=== PATIENT | male | born 1975 | race Caucasian/White ===

== ENCOUNTER 2016-09-23 12:40 | Emergency (ER) | payer MEDICAID, MEDICARE, OTHER ==
[2016-09-23 12:41] VITALS: BMI 22.8
--- NOTE | 2016-09-23 13:25 | ED PDOC ---
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 This 41 yo male with pmh depression, substance abuse, is brought to this ED by BLS for evaluation of suicidal ideation x 1 week. Patient stated he has been hearing voices to "kill" himself. Patient admits using heroin yesterday. Patient has no plans. Denies other complains. (Kathie Dinh) Past Medical History - Provider Review Nursing Documentation Reviewed: Yes - Infectious Disease Hx of Infectious Diseases: None - Tetanus Immunization Tetanus Immunization: Unknown - Past Medical History Past Medical History: No Previous - Cardiac Hx Cardiac Disorders: No Hx Hypertension: No - Pulmonary Hx Respiratory Disorders: No Hx Tuberculosis: No - Neurological Hx Neurological Disorder: No HX Cerebrovascular Accident: No Hx Seizures: No - HEENT Hx HEENT Disorder: No - Renal Hx Renal Disorder: No - Endocrine/Metabolic Hx Endocrine Disorders: No - Hematological/Oncological Hx Blood Disorders: Yes Hx Cancer: No Hx Hepatitis C: Yes (Hep C+) - Integumentary Hx Dermatological Disorder: No - Musculoskeletal/Rheumatological Hx Musculoskeletal Disorders: No Hx Falls: No - Gastrointestinal Hx Gastrointestinal Disorders: No - Genitourinary/Gynecological Hx Genitourinary Disorders: No Hx Sexually Transmitted Diseases: No - Psychiatric Hx Substance Use: Yes (Heroin, Xanax abuse, Cocaine) - Past Surgical History Past Surgical History: No Previous - Surgical History Hx Orthopedic Surgery: Yes Other/Comment: Compound FX of the R arm-2 years ago-Surgery in [facility] [place] - Anesthesia Hx Anesthesia: Yes Hx Anesthesia Reactions: No Hx Malignant Hyperthermia: No - Suicidal Assessment Feels Threatened In Home Enviroment: No <Dinh,Nahim P - Last Filed: 09/23/16 18:45> Family/Social History - Physician Review Nursing Documentation Reviewed: Yes Family/Social History: No Known Family HX Smoking Status: Light Smoker < 10 Cigarettes Daily Hx Alcohol Use: No Hx Substance Use: Yes (Heroin, Xanax abuse, Cocaine) Substance used: heroin Hx Substance Use Treatment: No <Kathie Dinh P - Last Filed: 09/23/16 18:45> Allergies/Home Meds <Selvin Aguilar L - Last Filed: 09/23/16 17:21> <Kathie Dinh P - Last Filed: 09/23/16 18:45> <Laci Resendiziy - Last Filed: 09/23/16 23:10> <Sarah Woodsonil - Last Filed: 09/24/16 15:11> Allergies/Adverse Reactions: Allergies No Known Allergies Allergy (Verified 06/27/16 21:48) Home Medications: Home Meds Medication Instructions Recorded Confirmed No Known Home Med 06/27/16 09/23/16 Review of Systems - Review of Systems Constitutional: Normal. absent: Fatigue, Weight Change, Fevers Eyes: Normal ENT: Normal Respiratory: Normal. absent: SOB, Cough, Sputum, Wheezing Cardiovascular: Normal Gastrointestinal: Normal. absent: Abdominal Pain, Nausea, Vomiting Genitourinary Male: Normal. absent: Dysuria, Frequency, Hematuria Musculoskeletal: Normal Skin: Normal Neurological: Normal. absent: Headache, Dizziness Endocrine: Normal Hemo/Lymphatic: Normal Psychiatric: Depression, Suicidal Ideation <Kathie Dinh P - Last Filed: 09/23/16 18:45> Physical Exam Temperature: Afebrile Blood Pressure: Normal Pulse: Regular Respiratory Rate: Normal Appearance: Positive for: Well-Appearing, Non-Toxic, Comfortable Pain Distress: None Mental Status: Positive for: Alert and Oriented X 3 - Systems Exam Head: Present: Atraumatic, Normocephalic Pupils: Present: PERRL Extroacular Muscles: Present: EOMI Conjunctiva: Present: Normal Mouth: Present: Moist Mucous Membranes Neck: Present: Normal Range of Motion Respiratory/Chest: Present: Clear to Auscultation, Good Air Exchange. No: Respiratory Distress, Accessory Muscle Use Cardiovascular: Present: Regular Rate and Rhythm, Normal S1, S2. No: Murmurs Abdomen: Present: Normal Bowel Sounds. No: Tenderness, Distention, Peritoneal Signs Back: Present: Normal Inspection Upper Extremity: Present: Normal Inspection, Normal ROM, NORMAL PULSES, Neurovascularly Intact, Capillary Refill < 2s. No: Cyanosis, Edema Lower Extremity: Present: Normal Inspection, NORMAL PULSES, Normal ROM, Neurovascularly Intact, Capillary Refill < 2 s. No: Edema Neurological: Present: GCS=15, CN II-XII Intact, Speech Normal, Motor Func Grossly Intact, Normal Sensory Function, Normal Cerebellar Funct, Gait Normal Skin: Present: Warm, Dry, Normal Color. No: Rashes Psychiatric: Present: Alert, Oriented x 3, Depressed Mood, Suicidal Ideation, Hallucinations. No: Homicidal Ideation, Delusional, Intoxicated, Lethargic <Kathie Dinh - Last Filed: 09/23/16 18:45> Medical Decision Making <Selvin Aguilar - Last Filed: 09/23/16 17:21> - Lab Interpretations I have reviewed the lab results: Yes Interpretation: No clinic. lab abnormalty (polysubstance abuse) - EKG Interpretation Interpreted by ED Physician: Yes (NSR@71bpm. Normal interval) Type: 12 lead EKG Comparison: No previous EKG avail. - Transfer of Care Patient signed out to Dr:: Dr. Woodson, pending [facility] PES Screener evaluation <Kathie Dinh - Last Filed: 09/23/16 18:45> <Luis Resendiz - Last Filed: 09/23/16 23:10> <Jaciel Woodson - Last Filed: 09/24/16 15:11> ED Course and Treatment: 09/23/16 17:06 I was available for consultation during PA evaluation. The chart was reviewed by me, and I agree with disposition. The documented history was done by the physician adoption social worker. The documented physical exam was done by the physician adoption social worker. The documented procedures were done by the physician adoption social worker. (Selvin Aguilar) 09/23/16 16:22 [place] PES screener has evaluated patient, and spoken with Dr. Pereyra, who recommends [facility] for PES evaluation due to SI and depression 09/23/16 17:30 Nurse stated patient had tried to hurt himself with his blanket. His hospital gown and blanket were removed. 09/23/16 17:42 Patient has becoming increasingly violent , and attempting to hurt himself with stretcher. I ordered 2 point restrained, Ativan 2 mg IM, Haldol [address] Aguilar recommended also, 25 mg Benadryl IM . 09/23/16 18:40 PATIENT IS MEDICAL CLEAR FOR PES SCREENING, AND ADMISSION (Kathie Dinh) 09/23/16 22:[address] [facility]. pt accepted. 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, pending bed at [facility] (Jaciel Woodson) - Lab Interpretations Lab Results: 09/23/16 13:00 09/23/16 13:00 Lab Results 09/23/16 16:45: Urine Opiates Screen Positive H, Urine Methadone Screen Negative , Ur Barbiturates Screen Negative, Ur Phencyclidine Scrn Negative, Ur Amphetamines Screen Negative, U Benzodiazepines Scrn Negative, U Oth Cocaine Metabols Positive H, U Cannabinoids Screen Negative 09/23/16 16:45: Urine Color Yellow, Urine Appearance Clear, Urine pH 6.5, Ur Specific [place] 1.020, Urine Protein Trace H, Urine Glucose (UA) Negative, Urine Ketones Trace H, Urine Blood Negative, Urine Nitrate Negative, Urine Bilirubin Negative, Urine Urobilinogen 0.2, Ur Leukocyte Esterase Trace H, Urine RBC 0 - 2, Urine WBC 1 - 3, Ur Epithelial Cells 0 - 2 09/23/16 13:00: Alcohol, Quantitative < 10 09/23/16 13:00: Salicylates < 1 L, Acetaminophen < 10.0 L 09/23/16 13:00: Sodium 142, Potassium 3.8, Chloride 100, Carbon Dioxide 29, Anion Gap 17, BUN 17, Creatinine 1.0, Est GFR ( Amer) > 60, Est GFR (Non- Af Amer) > 60, Random Glucose 107, Calcium 10.1, Total Bilirubin 0.6, AST 52, ALT 39, Alkaline Phosphatase 102, Total Protein 10.4 H, Albumin 4.4, Globulin 6.0, Albumin/Globulin Ratio 0.7 L 09/23/16 13:00: WBC 3.1 L D, RBC 4.77, Hgb 13.6 L, Hct 40.6 L, MCV 85.1, MCH 28.5, MCHC 33.5, RDW 13.8, Plt Count 317, MPV 9.6, Gran % 49.2 L, Lymph % (Auto ) 27.4, [place] % (Auto) 19.5 H, Eos % (Auto) 3.9, Baso % (Auto) 0.0, Gran # 1.51, Lymph # 0.8 L, [place] # 0.6, Eos # 0.1, Baso # 0.00 - RAD Interpretation Narrative RAD Interpretations (Text): 09/23/16 15:53 Accession No. 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 PLEURA: No significant pleural effusion identified, no pneumothorax apparent. CARDIOVASCULAR: Normal. OSSEOUS STRUCTURES: No significant abnormalities. VISUALIZED UPPER ABDOMEN: Normal. OTHER FINDINGS: None. IMPRESSION: No active disease. (Kathie Dinh) Radiology Orders: 09/23/16 13:26 CHEST PORTABLE [RAD] Stat - Medication Orders Current Medication Orders: Discontinued Medications Diphenhydramine HCl (Benadryl) 25 mg IM STAT STA Stop: 09/23/16 17:40 Last Admin: 09/23/16 17:47 Dose: 25 mg Haloperidol Lactate (Haldol) 5 mg IM STAT STA PRN Reason: Protocol Stop: 09/23/16 17:37 Last Admin: 09/23/16 17:48 Dose: 5 mg Lorazepam (Ativan) 2 mg IM ONCE ONE PRN Reason: Protocol Stop: 09/23/16 17:38 Last Admin: 09/23/16 17:48 Dose: 2 mg Disposition/Present on Arrival <Selvin Aguilar - Last Filed: 09/23/16 17:21> - Present on Arrival History of DVT/PE: No History of Uncontrolled Diabetes: No Urinary Catheter: No History of Decub. Ulcer: No History Surgical Site Infection Following: None <Kathie Dinh - Last Filed: 09/23/16 18:45> <Luis Resendiz - Last Filed: 09/23/16 23:10> - Present on Arrival Any Indicators Present on Arrival: No - Disposition Have Diagnosis and Disposition been Completed?: Yes Disposition Time: 11:00 <Jaciel Woodson - Last Filed: 09/24/16 15:11> - Disposition Diagnosis: Medical clearance for psychiatric admission Disposition: Transfer [facility] Condition: STABLE Referrals: PCP,NO [Primary Care Provider] - Follow up with primary Forms: [employer] (Lithuanian)
--- NOTE | 2016-09-23 15:35 | RAD ---
HISTORY: PES COMPARISON: 02/10/2016 FINDINGS: LUNGS: No active pulmonary disease. PLEURA: No significant pleural effusion identified, no pneumothorax apparent. CARDIOVASCULAR: Normal. OSSEOUS STRUCTURES: No significant abnormalities. VISUALIZED UPPER ABDOMEN: Normal. OTHER FINDINGS: None. IMPRESSION: No active disease.
[2016-09-23 15:39] LABS: EOS # 0.1 (0.0-0.7); EOS % 3.9 % (1.5-5.0); GRAN # 1.51 (1.4-6.5); GRAN % 49.2 % (50.0-68.0); HEMOGLOBIN 13.6 g/dL (14.0-18.0); LYMPH # 0.8 (1.2-3.4); LYMPH % 27.4 % (22.0-35.0); MEAN CELL VOLUME 85.1 fl (80.0-105.0); MEAN CORPUSCULAR HEMOGLOBIN 28.5 pg (25.0-35.0); MEAN CORPUSCULAR HGB CONC 33.5 g/dl (31.0-37.0); MEAN PLATELET VOLUME 9.6 fl (7.0-11.0); MONO # 0.6 (0.1-0.6); MONO % 19.5 % (1.0-6.0); PLATELET COUNT 317 10^3/uL (120.0-450.0); RBC 4.77 10^6/uL (3.5-6.1); RED CELL DISTRIBUTION WIDTH 13.8 % (11.5-14.5); WHITE BLOOD COUNT 3.1 10^3/ul (4.5-11.0)
[2016-09-23 15:45] LABS: ACETAMINOPHEN < 10.0 ug/ml (10.0-20.0); SALICYLATE < 1 mg/dL (2.0-20.0)
[2016-09-23 15:46] LABS: ALB/GLOB RATIO 0.7 (1.1-1.8); ALBUMIN 4.4 g/dL (3.0-4.8); ALT/SGPT 39 U/L (7-56); AST/SGOT 52 U/L (15-59); BLOOD UREA NITROGEN 17 mg/dL (7-21); CALCIUM 10.1 mg/dL (8.4-10.5); GFR AFRICAN-AMERICAN > 60; GFR NON-AFRICAN AMERICAN > 60
[2016-09-23 17:02] LABS: PH,URINE 6.5 (4.7-8.0); URINE BILIRUBIN NEGATIVE (NEGATIVE); URINE BLOOD NEGATIVE (NEGATIVE); URINE GLUCOSE (UA) NEGATIVE (NEGATIVE); URINE LEUKOCYTE ESTERASE TRACE Leu/uL (NEGATIVE); URINE NITRATE NEGATIVE (NEGATIVE); URINE PROTEIN TRACE mg/dL (<30 mg/dL); URINE UROBILINOGEN 0.2 E.U./dL (<1 E.U./dL)
[2016-09-23 17:03] LABS: URINE APPEARANCE CLEAR (CLEAR); URINE COLOR YELLOW (YELLOW)
[2016-09-23 17:30] LABS: BARBITURATES, UR NEGATIVE (NEGATIVE); BENZODIAZEPINES, UR NEGATIVE (NEGATIVE); OPIATES, UR POSITIVE (NEGATIVE); PHENCYCLIDINE, UR NEGATIVE (NEGATIVE)
[2016-09-23] MEDS ORDERED: DiphenhydrAMINE 50 mg/ml Inj IM STA (17:39)
[2016-09-23 17:54] LABS: URINE EPITHELIAL CELLS 0 - 2 /hpf (0-5); URINE RBC 0 - 2 /hpf (0-2)
--- NOTE | 2016-09-23 23:16 | ED PDOC ---
Physical Exam Vital Signs Reviewed: Yes Vital Signs Temp Pulse Resp BP Pulse Ox 09/24/16 03:50 98.6 F 87 16 145/92 H 98 09/24/16 02:02 86 17 134/90 97 09/23/16 16:41 70 18 128/95 H 97 09/23/16 12:53 98.1 F 75 18 130/85 97 Temperature: Afebrile Blood Pressure: Normal Pulse: Regular Respiratory Rate: Normal Appearance: Positive for: Well-Appearing, Non-Toxic, Comfortable Pain Distress: None Mental Status: Positive for: Alert and Oriented X 3 Medical Decision Making ED Course and Treatment: 09/23/16 23:00 Case signed out to me by , pending transfer to [facility]. Patient accepted by [facility] for involuntary admission. 09/24/16 01:47 pt in no distress ready for transfer to [facility] 09/24/16 03:52 BLS here in ed to transfer patient to [facility]. pt is medically stable for transfer. - Lab Interpretations Lab Results: 09/23/16 13:00 09/23/16 13:00 Lab Results 09/23/16 16:45: Urine Opiates Screen Positive H, Urine Methadone Screen Negative , Ur Barbiturates Screen Negative, Ur Phencyclidine Scrn Negative, Ur Amphetamines Screen Negative, U Benzodiazepines Scrn Negative, U Oth Cocaine Metabols Positive H, U Cannabinoids Screen Negative 09/23/16 16:45: Urine Color Yellow, Urine Appearance Clear, Urine pH 6.5, Ur Specific [place] 1.020, Urine Protein Trace H, Urine Glucose (UA) Negative, Urine Ketones Trace H, Urine Blood Negative, Urine Nitrate Negative, Urine Bilirubin Negative, Urine Urobilinogen 0.2, Ur Leukocyte Esterase Trace H, Urine RBC 0 - 2, Urine WBC 1 - 3, Ur Epithelial Cells 0 - 2 09/23/16 13:00: Alcohol, Quantitative < 10 09/23/16 13:00: Salicylates < 1 L, Acetaminophen < 10.0 L 09/23/16 13:00: Sodium 142, Potassium 3.8, Chloride 100, Carbon Dioxide 29, Anion Gap 17, BUN 17, Creatinine 1.0, Est GFR ( Amer) > 60, Est GFR (Non- Af Amer) > 60, Random Glucose 107, Calcium 10.1, Total Bilirubin 0.6, AST 52, ALT 39, Alkaline Phosphatase 102, Total Protein 10.4 H, Albumin 4.4, Globulin 6.0, Albumin/Globulin Ratio 0.7 L 09/23/16 13:00: WBC 3.1 L D, RBC 4.77, Hgb 13.6 L, Hct 40.6 L, MCV 85.1, MCH 28.5, MCHC 33.5, RDW 13.8, Plt Count 317, MPV 9.6, Gran % 49.2 L, Lymph % (Auto ) 27.4, [place] % (Auto) 19.5 H, Eos % (Auto) 3.9, Baso % (Auto) 0.0, Gran # 1.51, Lymph # 0.8 L, [place] # 0.6, Eos # 0.1, Baso # 0.00 - RAD Interpretation Radiology Orders: 09/23/16 13:26 CHEST PORTABLE [RAD] Stat - Medication Orders Current Medication Orders: Discontinued Medications Diphenhydramine HCl (Benadryl) 25 mg IM STAT STA Stop: 09/23/16 17:40 Last Admin: 09/23/16 17:47 Dose: 25 mg Haloperidol Lactate (Haldol) 5 mg IM STAT STA PRN Reason: Protocol Stop: 09/23/16 17:37 Last Admin: 09/23/16 17:48 Dose: 5 mg Lorazepam (Ativan) 2 mg IM ONCE ONE PRN Reason: Protocol Stop: 09/23/16 17:38 Last Admin: 09/23/16 17:48 Dose: 2 mg - Scribe Statement The provider has reviewed the documentation as recorded by the Abdoulaye Marte Provider Attestation: All medical record entries made by the Abdoulaye were at my direction and personally dictated by me. I have reviewed the chart and agree that the record accurately reflects my personal performance of the history, physical exam, medical decision making, and the department course for this patient. I have also personally directed, reviewed, and agree with the discharge instructions and disposition. Disposition/Present on Arrival - Present on Arrival Any Indicators Present on Arrival: No History of DVT/PE: No History of Uncontrolled Diabetes: No Urinary Catheter: No History of Decub. Ulcer: No History Surgical Site Infection Following: None - Disposition Have Diagnosis and Disposition been Completed?: Yes Diagnosis: Medical clearance for psychiatric admission Disposition: Transfer [facility] Disposition Time: 01:47 Patient Problems: Current Active Problems Problem Status Onset Medical clearance for psychiatric admission Acute Condition: STABLE Referrals: PCP,NO [Primary Care Provider] - Follow up with primary Forms: [employer] (Romansh)
--- NOTE | 2016-09-24 00:19 | CARD ---
APPROVED REPORT EKG Measurement Heart [id number] <Conclusion> Normal sinus rhythm Normal ECG
[2016-09-24 03:51] VITALS: BP 145/92; PULSE 87; RESP 16; TEMP 98.6; O2SAT 98
== END 2016-09-24 03:58 | disposition short-term general hospital (02) ==
LOC: ED 12:40
DX: Z00.8 Encounter for other general examination (principal)
CPT/HCPCS: 71010; 80053; 81001; 85025; 87086; 90791; 93005; 96372; 99285; G0480; J1200; J1630; J2060

== ENCOUNTER 2017-02-03 12:16 | Inpatient (IN) | payer MEDICAID, OTHER ==
[2017-02-03 12:17] VITALS: BMI 22.8
[2017-02-03 12:51] VITALS: O2SAT 98
--- NOTE | 2017-02-03 13:07 | ED PDOC ---
Arrival/HPI - General Chief Complaint: Psychiatric Evaluation Time Seen by Provider: 02/03/17 12:18 Historian: Patient - History of Present Illness Narrative History of Present Illness (Text): 02/03/17 13:08 A 41 year old male, whose past medical history includes depression and substance abuse, presents to the emergency department for depression. Patient reports to having thoughts of killing himself. Patient denies any hallucination or any other complaints at this time. Symptom Onset: Sudden Symptom Course: Unchanged Activities at Onset: Rest Context: Home Past Medical History - Provider Review Nursing Documentation Reviewed: Yes - Infectious Disease Hx of Infectious Diseases: None - Tetanus Immunization Tetanus Immunization: Unknown - Past Medical History Past Medical History: No Previous - Cardiac Hx Cardiac Disorders: No Hx Hypertension: No - Pulmonary Hx Respiratory Disorders: No Hx Tuberculosis: No - Neurological Hx Neurological Disorder: No HX Cerebrovascular Accident: No Hx Seizures: No - HEENT Hx HEENT Disorder: No - Renal Hx Renal Disorder: No - Endocrine/Metabolic Hx Endocrine Disorders: No - Hematological/Oncological Hx Blood Disorders: Yes Hx Cancer: No Hx Hepatitis C: Yes (Hep C+) - Integumentary Hx Dermatological Disorder: No - Musculoskeletal/Rheumatological Hx Musculoskeletal Disorders: No Hx Falls: No - Gastrointestinal Hx Gastrointestinal Disorders: No - Genitourinary/Gynecological Hx Genitourinary Disorders: No Hx Sexually Transmitted Diseases: No - Psychiatric Hx Substance Use: Yes (Heroin, Xanax abuse, Cocaine) - Past Surgical History Past Surgical History: No Previous - Surgical History Hx Orthopedic Surgery: Yes Other/Comment: Compound FX of the R arm-2 years ago-Surgery in [facility] [place] - Anesthesia Hx Anesthesia: Yes Hx Anesthesia Reactions: No Hx Malignant Hyperthermia: No - Suicidal Assessment Feels Threatened In Home Enviroment: No Family/Social History - Physician Review Nursing Documentation Reviewed: Yes Family/Social History: No Known Family HX Smoking Status: Light Smoker < 10 Cigarettes Daily Hx Alcohol Use: No Hx Substance Use: Yes (Heroin, Xanax abuse, Cocaine) Substance used: heroin Hx Substance Use Treatment: No Allergies/Home Meds Allergies/Adverse Reactions: Allergies No Known Allergies Allergy (Verified 06/27/16 21:48) Home Medications: Home Meds Medication Instructions Recorded Confirmed No Known Home Med 06/27/16 02/03/17 Review of Systems - Physician Review All systems were reviewed & negative as marked: Yes - Review of Systems Constitutional: absent: Fevers Psychiatric: Depression. absent: Other (hallucinations) Physical Exam Vital Signs Reviewed: Yes Vital Signs Temp Pulse Resp BP Pulse Ox 02/03/17 12:48 98.2 F 108 H 19 145/96 H 98 Temperature: Afebrile Blood Pressure: Hypertensive Pulse: Tachycardic Respiratory Rate: Normal Appearance: Positive for: Well-Appearing, Non-Toxic, Comfortable Pain Distress: None Mental Status: Positive for: Alert and Oriented X 3 - Systems Exam Head: Present: Atraumatic, Normocephalic Pupils: Present: PERRL Extroacular Muscles: Present: EOMI Conjunctiva: Present: Normal Mouth: Present: Moist Mucous Membranes Neck: Present: Normal Range of Motion Respiratory/Chest: Present: Clear to Auscultation, Good Air Exchange. No: Respiratory Distress, Accessory Muscle Use Cardiovascular: Present: Regular Rate and Rhythm, Normal S1, S2. No: Murmurs Abdomen: Present: Normal Bowel Sounds. No: Tenderness, Distention, Peritoneal Signs Back: Present: Normal Inspection Upper Extremity: Present: Normal Inspection. No: Cyanosis, Edema Lower Extremity: Present: Normal Inspection. No: Edema Neurological: Present: GCS=15, CN II-XII Intact, Speech Normal Skin: Present: Warm, Dry, Normal Color. No: Rashes Psychiatric: Present: Alert, Oriented x 3, Normal Concentration, Depressed Mood Medical Decision Making ED Course and Treatment: 02/03/17 13:06 Impression: A 41 year old male with depression. Plan: -- EKG -- labs -- Urinalysis -- Reassess and disposition Prior Visits: Notes and results from previous visits were reviewed. Patient was last seen in the emergency department on 09/23/16 for evaluation of suicidal ideation. Progress Notes: EKG: Ordered, reviewed, and independently interpreted the EKG. Rate : 93 BPM Rhythm : NSR Interpretation : No ST/T wave changes 02/03/17 13:50 Patient is medically cleared for psychiatric admission. no cardiopulmonary complaints. 02/03/17 14:37 Patient is accepted by Dr. Raya. 02/03/17 15:10 - Lab Interpretations Lab Results: 02/03/17 13:00 02/03/17 13:00 Lab Results 02/03/17 13:00: Alcohol, Quantitative < 10 02/03/17 13:00: Salicylates < 1 L, Acetaminophen < 10.0 L 02/03/17 13:00: Urine Opiates Screen Positive H, Urine Methadone Screen Negative , Ur Barbiturates Screen Negative, Ur Phencyclidine Scrn Negative, Ur Amphetamines Screen Negative, U Benzodiazepines Scrn Positive, U Oth Cocaine Metabols Positive H, U Cannabinoids Screen Negative 02/03/17 13:00: Sodium 141, Potassium 3.9, Chloride 100, Carbon Dioxide 30, Anion Gap 16, BUN 18, Creatinine 0.9, Est GFR ( Amer) > 60, Est GFR (Non- Af Amer) > 60, Random Glucose 120 H, Calcium 9.5, Total Bilirubin 0.4, AST 51, ALT 45, Alkaline Phosphatase 87, Total Protein 8.9 H, Albumin 4.1, Globulin 4.8 , Albumin/Globulin Ratio 0.9 L 02/03/17 13:00: Urine Color Yellow, Urine Appearance Clear, Urine pH 6.0, Ur Specific [place] 1.025, Urine Protein Trace H, Urine Glucose (UA) Negative, Urine Ketones Trace H, Urine Blood Negative, Urine Nitrate Negative, Urine Bilirubin Negative, Urine Urobilinogen 0.2, Ur Leukocyte Esterase Negative, Urine RBC Negative, Urine WBC Negative, Ur Epithelial Cells 0 - 2 02/03/17 13:00: WBC 4.2 L D, RBC 4.38, Hgb 13.4 L, Hct 40.6 L, MCV 92.7 D, MCH 30.6, MCHC 33.0, RDW 13.0, Plt Count 249, MPV 9.4, Gran % 59.0, Lymph % (Auto) 25.4, [place] % (Auto) 12.2 H, Eos % (Auto) 2.9, Baso % (Auto) 0.5, Gran # 2.47, Lymph # 1.1 L, [place] # 0.5, Eos # 0.1, Baso # 0.02 I have reviewed the lab results: Yes - EKG Interpretation Interpreted by ED Physician: Yes Type: 12 lead EKG - Medication Orders Current Medication Orders: Discontinued Medications Lorazepam (Ativan) 0.5 mg PO ONCE ONE PRN Reason: Protocol Stop: 02/03/17 13:48 Last Admin: 02/03/17 13:57 Dose: 0.5 mg - Scribe Statement The provider has reviewed the documentation as recorded by the Abdoulaye Bishop Provider Scribe Attestation: All medical record entries made by the Mikaibelana were at my direction and personally dictated by me. I have reviewed the chart and agree that the record accurately reflects my personal performance of the history, physical exam, medical decision making, and the department course for this patient. I have also personally directed, reviewed, and agree with the discharge instructions and disposition. Disposition/Present on Arrival - Present on Arrival Any Indicators Present on Arrival: No History of DVT/PE: No History of Uncontrolled Diabetes: No Urinary Catheter: No History of Decub. Ulcer: No History Surgical Site Infection Following: None - Disposition Have Diagnosis and Disposition been Completed?: Yes Diagnosis: Depression Disposition: HOSPITALIZED Disposition Time: 02:00 Condition: STABLE
[2017-02-03 13:35] LABS: BASO # 0.02 K/mm3 (0.0-2.0); BASO % 0.5 % (0.0-3.0); EOS # 0.1 (0.0-0.7); EOS % 2.9 % (1.5-5.0); GRAN # 2.47 (1.4-6.5); HEMATOCRIT 40.6 % (42.0-52.0); LYMPH # 1.1 (1.2-3.4); LYMPH % 25.4 % (22.0-35.0); MEAN CELL VOLUME 92.7 fl (80.0-105.0); MEAN CORPUSCULAR HEMOGLOBIN 30.6 pg (25.0-35.0); MEAN PLATELET VOLUME 9.4 fl (7.0-11.0); MONO # 0.5 (0.1-0.6); MONO % 12.2 % (1.0-6.0); WHITE BLOOD COUNT 4.2 10^3/ul (4.5-11.0)
[2017-02-03 13:37] LABS: URINE BILIRUBIN NEGATIVE (NEGATIVE); URINE BLOOD NEGATIVE (NEGATIVE); URINE GLUCOSE (UA) NEGATIVE (NEGATIVE); URINE KETONE TRACE mg/dL (NEGATIVE); URINE LEUKOCYTE ESTERASE NEGATIVE Leu/uL (NEGATIVE); URINE PROTEIN TRACE mg/dL (<30 mg/dL); URINE UROBILINOGEN 0.2 E.U./dL (<1 E.U./dL)
[2017-02-03 13:38] LABS: ALKALINE PHOSPHATASE 87 U/L (38-126); ALT/SGPT 45 U/L (7-56); AST/SGOT 51 U/L (17-59); BILIRUBIN,TOTAL 0.4 mg/dL (0.2-1.3); BLOOD UREA NITROGEN 18 mg/dL (7-21); CALCIUM 9.5 mg/dL (8.4-10.5); CARBON DIOXIDE 30 mmol/L (21-33); CHLORIDE 100 mmol/L (98-107); GFR AFRICAN-AMERICAN > 60; GLUCOSE,RANDOM 120 mg/dL (70-110); POTASSIUM 3.9 mmol/L (3.6-5.0); SODIUM 141 mmol/L (132-148); TOTAL PROTEIN 8.9 g/dL (5.8-8.3)
[2017-02-03 13:44] LABS: URINE APPEARANCE CLEAR (CLEAR); URINE COLOR YELLOW (YELLOW)
[2017-02-03 13:46] LABS: ALB/GLOB RATIO 0.9 (1.1-1.8)
[2017-02-03 13:51] LABS: URINE RBC NEGATIVE /hpf (0-2)
[2017-02-03 13:52] LABS: URINE EPITHELIAL CELLS 0 - 2 /hpf (0-5); URINE WBC NEGATIVE /hpf (0-6)
--- NOTE | 2017-02-03 17:32 | PCM.BM ---
<Ramos Pierre - Last Filed: 02/03/17 17:29> Treatment Plan Problems - Problems identified on initial assessmt depression Date Initiated: 02/03/17 Time Initiated: 16:00 Assessment reference: NA Status: Active Priority: 1 Comment: Feeling hpeless and helpless Inefective Coping Date Initiated: 02/03/17 Time Initiated: 16:00 Assessment reference: NA Status: Active Priority: 2 Comment: Unable to deal with life stressors and style Suicidal ideations Date Initiated: 02/03/17 Time Initiated: 16:00 Assessment reference: NA Status: Active Priority: 3 Poor sleep patter Date Initiated: 02/03/17 Time Initiated: 16:00 Assessment reference: NA Status: Active Priority: 4 Medcation nonadherance Date Initiated: 02/03/17 Time Initiated: 16:00 Assessment reference: NA Status: Active Priority: 5 Drug abuse Date Initiated: 02/03/17 Time Initiated: 16:00 Assessment reference: NA Status: Active Priority: 6 Treatment assets and liabiliti Patient Assests: ADL independent, negotiates basic needs Patient Liabilities: substance abuse, medical problems - Milieu Protocol Maintain good personal hygiene: every shift Encourage regular showers, every shift Remind patient to perform daily oral care, every shift Assist patient to perform ADL's Maintain personal safety: every shift Educate patient to report safety concerns to staff, every shift Monitor environment for contraband/sharps Medication safety: Monitor for expected outcome, potential side effects: every shift, Assess barriers to learning: every shift, Assess readiness for medication education: every shift Discharge/Continuing Care - Education Needs Education Needs: Patient Medication, Patient Diagnosis/Disease Process, Patient Coping Skills, Patient Community resources, Patient Activities of Daily Living, Patient Nutrition, Patient Health Practices/Safety, Patient Aftercare Safety Plan - Discharge Discharge Criteria: Tolerates medication w/o severe side effects, Free of Suicidal thoughts, Normal sleep pattern, Reduction of target symptoms <Silvia Arroyo - Last Filed: 02/04/17 07:51> - Diagnosis (1) Depression Status: Acute Interventions: Psychoeducation Psychopharmacology/adjustment of medications as needed/ monitoring possible side effects Evaluate pt on daily basis Compliance with medications and follow up appointments Suicide and homicide risk assessment and prevention Relapse prevention Reduction of symptoms Improve functional status Family involvement As outpatient: cognitive behavioral therapy 02/04/17 07:38 (2) Polysubstance (excluding opioids) dependence Status: Chronic Interventions: Monitoring withdrawal symptoms Medical detoxification if necessary Pharmacotherapy for alcohol/benzos/opioid dependence Maintaining sobriety Relapse prevention Possible rehabilitation Motivational interviewing 12-step programs: AA meetings 02/04/17 07:51
[2017-02-03] MEDS ORDERED: DiphenhydrAMINE 50 mg/ml Inj IM PRN (18:27)
[2017-02-03] MEDS ORDERED: Home Med 1 UNIT PO SCH ×2 (22:00)
[2017-02-03] MEDS: Tmp-Smz 800 mg-160 mg DS Tab PO SCH (22:01)
[2017-02-03] MEDS: Lopinavir/Ritonavir Tab PO SCH (22:01)
[2017-02-04 07:14] VITALS: RESP 20
[2017-02-04] MEDS ORDERED: Home Med 1 UNIT PO SCH (08:00)
[2017-02-04] MEDS ORDERED: Emtricitabine-Tenofovir 200 mg-300 mg Tab PO SCH (08:00)
[2017-02-04 08:03] LABS: CHOLESTEROL 105 mg/dL (130-200)
[2017-02-04 08:20] LABS: FREE T4 1.24 ng/dL (0.78-2.19)
[2017-02-04 08:34] LABS: THYROID STIMULATING HORMONE 0.34 mIU/mL (0.46-4.68)
--- NOTE | 2017-02-04 09:42 | CARD ---
APPROVED REPORT EKG Measurement Heart [id number] <Conclusion> Normal sinus rhythm PRWP V 1 - 4, probably lead placement No change
--- NOTE | 2017-02-04 17:52 | PCM.PSYCH ---
Initial Psychiatric Evaluation - Initial Psychiatric Evaluation Legal Status: Capacity Chief Complaint (in patient's own words): "My girlfriend made me come here, I am not sure I need to be here" Patient's Reaction to Hospitalization: Patient is ambivalent regarding hospitalization, however he is willing to stay and take part in unit activities. He refused his Celexa this morning as he does not want to take medication. History of Present Illness and Precipitating Events: Patient is a 41 year old male brought to the emergency room by his girlfriend who indicated he was depressed and suicidal. He was "stressed out" prior to hospitalization due to financial stress due to unemployment. He just got out of prison after a 5 month stay for drug charges, both for possession and using. He has areas of excoriation on his face and arms, he indicates that he has been "picking" at these areas. He has never been and has no children. He lives with his girlfriend and has been with her for 1 year and says it is a good relationship. 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 He has had several hospitalizations in the past for depression and suicidal ideation as well as one for detox, all at [facility] and once here at [facility] for a suicide attempt where he tried to suffocate himself in his prison cell while under the influence. He has an extensive history of drug use, using heroin and cocaine since age 23, he has up until a year ago used alcohol as well. He is #2 of 3 siblings, his father is and he is not close to his family. He graduated from high school and had specialized training for his profession. Current Medications: Active Medications Generic Name Dose Route Start Last Admin Trade Name Freq PRN Reason Stop Dose Admin Citalopram Hydrobromide 10 mg 02/04/17 08:00 02/04/17 09:38 Celexa PO Not Given DAILY MANJINDER Diphenhydramine HCl 50 mg 02/03/17 18:23 Benadryl PO Q6 PRN side effect Diphenhydramine HCl 50 mg 02/03/17 18:27 Benadryl IM Q6H PRN Allergy symptoms Emtricitabine/Tenofovir 1 tab 02/04/17 22:00 Truvada 200 Mg-300 Mg PO HS MANJINDER Haloperidol 5 mg 02/03/17 18:21 Haldol PO Q6H PRN Anxiety Protocol Haloperidol Lactate 5 mg 02/03/17 18:25 Haldol IM Q6H PRN Agitation Protocol Home Med 2 unit 02/10/17 10:00 Home Med PO SHILPA MANJINDER Lopinavir/Ritonavir 4 cap 02/03/17 22:00 02/03/17 22:01 Kaletra 200-50 Mg PO 4 cap HS MANJINDER Administration Lorazepam 0.5 mg 02/03/17 18:52 02/03/17 22:01 Ativan PO 0.5 mg TID PRN Administration Anxiety Nicotine 1 patch 02/04/17 08:00 02/04/17 09:38 Nicoderm Cq TD Not Given DAILY MANJINDER Trimethoprim/Sulfamethoxazole 1 tab 02/03/17 22:00 02/03/17 22:01 Bactrim Ds Tab PO 1 tab HS MANJINDER Administration Zolpidem Tartrate 5 mg 02/03/17 22:00 02/03/17 22:01 Ambien PO 5 mg HS PRN Administration Insomnia Protocol Past Psychiatric History - Past Psychiatric History History of Abuse: Denied History of ETOH/Drug Use: Patient has used cocaine and heroin from age 23, ETOH use stopped 1 year ago. History of Family Illness: Denied Pertinent Medical Hx (Current Medical&Sleep Prob, Allergies): Allergies Allergy/AdvReac Type Severity Reaction Status Date / Time No Known Allergies Allergy Verified 02/03/17 17:24 Lopinavir/Ritonavir [Kaletra 200-50 mg] 4 tab PO HS 02/03/17 Sulfamethoxazole-Tmp Ss Tablet 1 tab HS 02/03/17 Patient is HIV and Hepatitis C positive. His medical care for these is Dr Butler at the [facility] in [place]. Temp Pulse Resp BP Pulse Ox 97.6 F 87 20 126/69 98 02/04/17 07:09 02/04/17 15:00 02/04/17 07:09 02/04/17 15:00 02/03/17 12:48 Most Recent Lab Values WBC 4.2 10^3/ul (4.5-11.0) L D 02/03/17 13:00 RBC 4.38 10^6/uL (3.5-6.1) 02/03/17 13:00 Hgb 13.4 g/dL (14.0-18.0) L 02/03/17 13:00 Hct 40.6 % (42.0-52.0) L 02/03/17 13:00 MCV 92.7 fl (80.0-105.0) D 02/03/17 13:00 MCH 30.6 pg (25.0-35.0) 02/03/17 13:00 MCHC 33.0 g/dl (31.0-37.0) 02/03/17 13:00 RDW 13.0 % (11.5-14.5) 02/03/17 13:00 Plt Count 249 10^3/uL (120.0-450.0) 02/03/17 13:00 MPV 9.4 fl (7.0-11.0) 02/03/17 13:00 Gran % 59.0 % (50.0-68.0) 02/03/17 13:00 Lymph % (Auto) 25.4 % (22.0-35.0) 02/03/17 13:00 [place] % (Auto) 12.2 % (1.0-6.0) H 02/03/17 13:00 Eos % (Auto) 2.9 % (1.5-5.0) 02/03/17 13:00 Baso % (Auto) 0.5 % (0.0-3.0) 02/03/17 13:00 Gran # 2.47 (1.4-6.5) 02/03/17 13:00 Lymph # 1.1 (1.2-3.4) L 02/03/17 13:00 [place] # 0.5 (0.1-0.6) 02/03/17 13:00 Eos # 0.1 (0.0-0.7) 02/03/17 13:00 Baso # 0.02 K/mm3 (0.0-2.0) 02/03/17 13:00 Sodium 141 mmol/L (132-148) 02/03/17 13:00 Potassium 3.9 mmol/L (3.6-5.0) 02/03/17 13:00 Chloride 100 mmol/L (98-107) 02/03/17 13:00 Carbon Dioxide 30 mmol/L (21-33) 02/03/17 13:00 Anion Gap 16 (10-20) 02/03/17 13:00 BUN 18 mg/dL (7-21) 02/03/17 13:00 Creatinine 0.9 mg/dl (0.8-1.5) 02/03/17 13:00 Est GFR ( Amer) > 60 02/03/17 13:00 Est GFR (Non-Af Amer) > 60 02/03/17 13:00 Random Glucose 120 mg/dL (70-110) H 02/03/17 13:00 Calcium 9.5 mg/dL (8.4-10.5) 02/03/17 13:00 Total Bilirubin 0.4 mg/dL (0.2-1.3) 02/03/17 13:00 AST 51 U/L (17-59) 02/03/17 13:00 ALT 45 U/L (7-56) 02/03/17 13:00 Alkaline Phosphatase 87 U/L (38-126) 02/03/17 13:00 Total Protein 8.9 g/dL (5.8-8.3) H 02/03/17 13:00 Albumin 4.1 g/dL (3.0-4.8) 02/03/17 13:00 Globulin 4.8 gm/dL 02/03/17 13:00 Albumin/Globulin Ratio 0.9 (1.1-1.8) L 02/03/17 13:00 Triglycerides 64 mg/dL (35-160) 02/04/17 07:40 Cholesterol 105 mg/dL (130-200) L 02/04/17 07:40 LDL Cholesterol Direct 55 mg/dL (0-129) 02/04/17 07:40 HDL Cholesterol 30 mg/dL (29-60) 02/04/17 07:40 Free T4 1.24 ng/dL (0.78-2.19) 02/04/17 07:40 TSH 3rd Generation 0.34 mIU/mL (0.46-4.68) L 02/04/17 07:40 Urine Color Yellow (YELLOW) 02/03/17 13:00 Urine Appearance Clear (CLEAR) 02/03/17 13:00 Urine pH 6.0 (4.7-8.0) 02/03/17 13:00 Ur Specific [place] 1.025 (1.005-1.035) 02/03/17 13:00 Urine Protein Trace mg/dL (<30 mg/dL) H 02/03/17 13:00 Urine Glucose (UA) Negative mg/dL (NEGATIVE) 02/03/17 13:00 Urine Ketones Trace mg/dL (NEGATIVE) H 02/03/17 13:00 Urine Blood Negative (NEGATIVE) 02/03/17 13:00 Urine Nitrate Negative (NEGATIVE) 02/03/17 13:00 Urine Bilirubin Negative (NEGATIVE) 02/03/17 13:00 Urine Urobilinogen 0.2 E.U./dL (<1 E.U./dL) 02/03/17 13:00 Ur Leukocyte Esterase Negative Yudith/uL (NEGATIVE) 02/03/17 13:00 Urine RBC Negative /hpf (0-2) 02/03/17 13:00 Urine WBC Negative /hpf (0-6) 02/03/17 13:00 Ur Epithelial Cells 0 - 2 /hpf (0-5) 02/03/17 13:00 Salicylates < 1 mg/dL (2.0-20.0) L 02/03/17 13:00 Urine Opiates Screen Positive (NEGATIVE) H 02/03/17 13:00 Urine Methadone Screen Negative (NEGATIVE) 02/03/17 13:00 Acetaminophen < 10.0 ug/ml (10.0-20.0) L 02/03/17 13:00 Ur Barbiturates Screen Negative (NEGATIVE) 02/03/17 13:00 Ur Phencyclidine Scrn Negative (NEGATIVE) 02/03/17 13:00 Ur Amphetamines Screen Negative (NEGATIVE) 02/03/17 13:00 U Benzodiazepines Scrn Positive (NEGATIVE) 02/03/17 13:00 U Oth Cocaine Metabols Positive (NEGATIVE) H 02/03/17 13:00 U Cannabinoids Screen Negative (NEGATIVE) 02/03/17 13:00 Alcohol, Quantitative < 10 mg/dL (0-10) 02/03/17 13:00 Review of Systems - EENT Eyes: As Per HPI Ears: As Per HPI Nose/Mouth/Throat: As Per HPI - Cardiovascular Cardiovascular: As Per HPI - Respiratory Respiratory: As Per HPI - Gastrointestinal Gastrointestinal: As Per HPI Mental Status Examination - Affect Affect: Flat - Motor Activity Motor Activity: Calm Additional comments: Patient appears to be cooperative, only area where there appeared to be any evasiveness was when discussing his legal issues. - Reliability in Providing Information Reliability in Providing Information: Fair - Speech Speech: Organized - Mood Mood: Depressed - Cognitive Functions Orientation: Person, Place, Situation, Time Sensorium: Alert Attention/Concentration: Attentive Estimate of Intelligence: Average Judgement: Intact, as evidence by: Insight regarding need for hospitalization Memory: Recent intact, as evidence by: Ability to recall events of the day - Risk Risk: Suicidal, Withdrawal - Strength & Assets Inventory Strength & Assets Inventory: Intelligence, Family support, Employment history, Cooperative - Limitations Additional comments: Limitations are his drug addiction, legal and financial issues. DSM 5 DX - DSM 5 DSM 5 Diagnosis: Depression, Polysubstance Use Disorder - Recommended/Plan of Treatment Treatment Recommendations and Plan of Treatment: Treatment plan: Milieu/structure/supportive therapy Medical consult appreciated, see medical team note for more detailed info consultation for discharge plan and social issues Med management Family involvement Follow up on labs Will monitor closely evaluation for d/c planning Pt was educated about risk/benefits and alternatives of medications, coping strategies (safety plan, suicide prevention), relapse prevention, importance of follow up with psychiatrist and therapist, stay away from drugs/alcohol/smoking
[2017-02-04] MEDS: Emtricitabine-Tenofovir 200 mg-300 mg Tab PO SCH (21:31)
[2017-02-04] MEDS: Tmp-Smz 800 mg-160 mg DS Tab PO SCH (21:32)
[2017-02-04] MEDS: Lopinavir/Ritonavir Tab PO SCH (21:52)
--- NOTE | 2017-02-04 23:32 | CP.PCM.CON ---
Past Patient History - Infectious Disease Hx of Infectious Diseases: None - Tetanus Immunizations Tetanus Immunization: Unknown - Past Medical History & Family History Past Medical History?: Yes - Past Social History Smoking Status: Light Smoker < 10 Cigarettes Daily - CARDIAC Hx Cardiac Disorders: No Hx Hypertension: No - PULMONARY Hx Respiratory Disorders: No Hx Tuberculosis: No - NEUROLOGICAL Hx Neurological Disorder: No HX Cerebrovascular Accident: No Hx Seizures: No - HEENT Hx HEENT Problems: No - RENAL Hx Chronic Kidney Disease: No - ENDOCRINE/METABOLIC Hx Endocrine Disorders: No - HEMATOLOGICAL/ONCOLOGICAL Hx Blood Disorders: Yes Hx Cancer: No Hx Hepatitis C: Yes (Hep C+) - INTEGUMENTARY Hx Dermatological Problems: No - MUSCULOSKELETAL/RHEUMATOLOGICAL Hx Musculoskeletal Disorders: No Hx Falls: No - GASTROINTESTINAL Hx Gastrointestinal Disorders: No - GENITOURINARY/GYNECOLOGICAL Hx Genitourinary Disorders: No Hx Sexually Transmitted Disorders: No - PSYCHIATRIC Hx Substance Use: Yes - SURGICAL HISTORY Hx Surgeries: Yes Hx Orthopedic Surgery: Yes Other/Comment: Compound FX of the R arm-2 years ago-Surgery in [facility] [place] - ANESTHESIA Hx Anesthesia: Yes Hx Anesthesia Reactions: No Hx Malignant Hyperthermia: No Meds Allergies/Adverse Reactions: Allergies Allergy/AdvReac Type Severity Reaction Status Date / Time No Known Allergies Allergy Verified 02/03/17 17:24 - Medications Medications: Current Medications Citalopram Hydrobromide (Celexa) 10 mg PO DAILY [facility] Last Admin: 02/04/17 09:38 Dose: Not Given Diphenhydramine HCl (Benadryl) 50 mg PO Q6 PRN PRN Reason: side effect Last Admin: 02/04/17 21:31 Dose: 50 mg Diphenhydramine HCl (Benadryl) 50 mg IM Q6H PRN PRN Reason: Allergy symptoms Emtricitabine/Tenofovir (Truvada 200 Mg-300 Mg) 1 tab PO HS MANJINDER Last Admin: 02/04/17 21:31 Dose: 1 tab Haloperidol (Haldol) 5 mg PO Q6H PRN; Protocol PRN Reason: Anxiety Last Admin: 02/04/17 21:31 Dose: 5 mg Haloperidol Lactate (Haldol) 5 mg IM Q6H PRN; Protocol PRN Reason: Agitation Home Med (Home Med) 2 unit PO SHILPA MANJINDER Lopinavir/Ritonavir (Kaletra 200-50 Mg) 4 cap PO HS MANJINDER Last Admin: 02/04/17 21:52 Dose: 4 cap Lorazepam (Ativan) 0.5 mg PO TID PRN PRN Reason: Anxiety Last Admin: 02/04/17 21:32 Dose: 0.5 mg Nicotine (Nicoderm Cq) 1 patch TD DAILY MANJINDER Last Admin: 02/04/17 09:38 Dose: Not Given Trimethoprim/Sulfamethoxazole (Bactrim Ds Tab) 1 tab PO HS MANJINDER Last Admin: 02/04/17 21:32 Dose: 1 tab Zolpidem Tartrate (Ambien) 5 mg PO HS PRN; Protocol PRN Reason: Insomnia Last Admin: 02/04/17 21:53 Dose: 5 mg Results - Vital Signs Recent Vital Signs: Last Vital Signs Temp 97.6 F 02/04/17 07:09 Pulse 87 02/04/17 15:00 Resp 20 02/04/17 07:09 BP 126/69 02/04/17 15:00 Pulse Ox 98 02/03/17 12:48 - Labs Result Diagrams: 02/03/17 13:00 02/03/17 13:00 Labs: Laboratory Results - last 24 hr 02/04/17 02/04/17 07:40 07:40 Triglycerides 64 Cholesterol 105 L LDL Cholesterol Direct 55 HDL Cholesterol 30 Free T4 1.24 TSH 3rd Generation 0.34 L
[2017-02-05 07:14] VITALS: BP 91/58; PULSE 72; TEMP 98.1
--- NOTE | 2017-02-05 15:03 | PCM.PYCHPN ---
Psychiatric Progress Note - Psychiatric Progress Note Patient seen today, length of contact: 30min Patient Chief Complaint: "I am so depressed" Problems Identified/Issues Discussed: Suicide/ homicide prevention, past psychiatric h/o, current psychiatric symptoms , medical problems, risk/benefits and alternatives of medications, medications compliance, coping strategies, substance abuse h/o, relapse prevention, importance of follow up with psychiatrist and therapist, discharge plan. Medical Problems: HIV Diagnostic Results: 02/03/17 13:00 02/03/17 13:00 Lab Results 02/04/17 07:40: Triglycerides 64, Cholesterol 105 L, LDL Cholesterol Direct 55, HDL Cholesterol 30 02/04/17 07:40: Free T4 1.24, TSH 3rd Generation 0.34 L 02/03/17 13:00: Alcohol, Quantitative < 10 02/03/17 13:00: Salicylates < 1 L, Acetaminophen < 10.0 L 02/03/17 13:00: Urine Opiates Screen Positive H, Urine Methadone Screen Negative , Ur Barbiturates Screen Negative, Ur Phencyclidine Scrn Negative, Ur Amphetamines Screen Negative, U Benzodiazepines Scrn Positive, U Oth Cocaine Metabols Positive H, U Cannabinoids Screen Negative 02/03/17 13:00: Sodium 141, Potassium 3.9, Chloride 100, Carbon Dioxide 30, Anion Gap 16, BUN 18, Creatinine 0.9, Est GFR ( Amer) > 60, Est GFR (Non- Af Amer) > 60, Random Glucose 120 H, Calcium 9.5, Total Bilirubin 0.4, AST 51, ALT 45, Alkaline Phosphatase 87, Total Protein 8.9 H, Albumin 4.1, Globulin 4.8 , Albumin/Globulin Ratio 0.9 L 02/03/17 13:00: Urine Color Yellow, Urine Appearance Clear, Urine pH 6.0, Ur Specific [place] 1.025, Urine Protein Trace H, Urine Glucose (UA) Negative, Urine Ketones Trace H, Urine Blood Negative, Urine Nitrate Negative, Urine Bilirubin Negative, Urine Urobilinogen 0.2, Ur Leukocyte Esterase Negative, Urine RBC Negative, Urine WBC Negative, Ur Epithelial Cells 0 - 2 02/03/17 13:00: WBC 4.2 L D, RBC 4.38, Hgb 13.4 L, Hct 40.6 L, MCV 92.7 D, MCH 30.6, MCHC 33.0, RDW 13.0, Plt Count 249, MPV 9.4, Gran % 59.0, Lymph % (Auto) 25.4, [place] % (Auto) 12.2 H, Eos % (Auto) 2.9, Baso % (Auto) 0.5, Gran # 2.47, Lymph # 1.1 L, [place] # 0.5, Eos # 0.1, Baso # 0.02 Vital Signs Temp Pulse Pulse Resp BP Pulse Ox 02/05/17 07:13 98.1 F 72 20 91/58 L 02/04/17 15:00 87 126/69 02/04/17 07:09 97.6 F 67 20 111/76 02/03/17 16:17 78 18 02/03/17 12:48 98.2 F 108 H 19 145/96 H 98 DSM 5 Symptoms Update: 41 y/o male, single, lives with girlfriend, unemployed and supporting his habit by asking for money from friends and family, with a psychiatric history of depression and medical h/o HIV. most recent admission to the Detox unit at [facility] in June 2016, h/o polysubstance abuse and dependence, IV heroin and conaine, benzodiazepines, pt also has h/o multiple incarcerations which mostly related to the drug possession and use, came to the hospital looking for help for his depressive symptoms and possible suicidal ideation. this web content writer is familiar with this pt from the admission to this facility in 2014 , pt had strong antisocial traits, pt tried to hang himself in the cell, trying to avoid his incarceration, after evaluation pt in the ED all charges were dropped, pt signed himself into the psychiatric unit, but when pt got to know that no charges against him pt submitted 48hr notice, then was d/c AMA. pt was seen today in his room, presented to have poor personal hygiene, good ADLs. pt reported to feel depressed, but asked when he will be discharged, denied thoughts of harming self or others, pt reported no v/a/t hallucinations. pt started to take meds, reported no side effects, AIMS 0, no EPS. DSM 5 Diagnosis: r/o MDD r/o substance induced psychosis r/o antisocial personality disorder Opiate use disorder- Severe Sedative, Hypnotic Use Disorder - severe Opioid withdrawal Sedative, hypnotic withdrawal Cocaine use disorder- severe Medication Change: Yes Medical Record Reviewed: Yes Consults ordered or reviewed: medical consult was called Mental Status Examination - Cognitive Function Orientation: Person, Place, Situation, Time Memory: Intact Attention: Poor Concentration: Poor Association: WNL Fund of Knowledge: WNL - Mood Mood: Depressed - Affect Affect: Flat - Speech Speech: Appropriate (low volume, underproductive) - Formal Thought Process Formal Thought Process: No Impairment - Suicidal Ideation Suicidal Ideation: No - Homicidal Ideation Homicidal Ideation: No Goal/Treatment Plan - Goal/Treatment Plan Need for Continued Stay: Remain at risks for inpatient hospitalization, Severe depression anxiety, Discharge may exacerbated symptoms, Severe functional impairment Progress Toward Problem(s) and Goals/Treatment Plan: Milieu/structure/supportive therapy Medical consult appreciated, see medical team note for more detailed info consultation for discharge plan and social issues Med management celexa was started, pt refused to take it at the beginning but compliant with it now ambien as needed for insomnia prn meds for possible agitation HIV meds resumed+ abx Family involvement Follow up on labs Will monitor closely evaluation for d/c planning Pt was educated about risk/benefits and alternatives of medications, coping strategies (safety plan, suicide prevention), relapse prevention, importance of follow up with psychiatrist and therapist, stay away from drugs/alcohol/smoking Estimated Date of D/C: 02/08/17 (will monitor closely) - Smoking Cessation Smoking Cessation Initiated: Yes
[2017-02-05] MEDS: Bacitracin Ointment 30 GM TUBE TOP SCH (18:47)
[2017-02-05] MEDS: Tmp-Smz 800 mg-160 mg DS Tab PO SCH (21:24)
[2017-02-05] MEDS: Emtricitabine-Tenofovir 200 mg-300 mg Tab PO SCH (21:24)
[2017-02-05] MEDS: Lopinavir/Ritonavir Tab PO SCH (21:24)
[2017-02-06] MEDS: Bacitracin Ointment 30 GM TUBE TOP SCH (08:11)
--- NOTE | 2017-02-06 16:36 | PCM.PYCHDC ---
Mental Status Examination - Mental Status Examination Orientation: Person, Place, Situation, Time Memory: Intact Mood: Neutral Affect: Constricted (but reactive, mood congruent) Speech: Appropriate Attention: WNL Concentration: WNL Association: WNL Fund of Knowledge: WNL Formal Thought Process: No Impairment Description of patient's judgement and insight: Pt has improved insight into mental and medical illness, pt was compliant with medications and unit rules and regulations, pt was going to groups, was calm, cooperative, socially appropriate, no behavioral incidents, no agitation, no aggression. Psychotic Thoughts and Behaviors: Pt denied v/a/t hallucinations, denied paranoid ideations, pt does not appear to be psychotic, and thought process is goal directed. Suicidal Ideation: No Current Homicidal Ideation?: No Plan: pt adamantly denied thoughts of harming self or others denied intent or plan. Discharge Summary - Discharge Note Reason for Hospitalization: depression, anxiety, suicidal ideation, no intent or plan, pt relapsed on drugs last Psychiatric History (includes Medical, Family, Personal Hx): h/o polysubstance abuse and dependence, h/o substance induced mood disorder Laboratory Data: 02/03/17 13:00 02/03/17 13:00 Lab Results 02/04/17 07:40: Triglycerides 64, Cholesterol 105 L, LDL Cholesterol Direct 55, HDL Cholesterol 30 02/04/17 07:40: Free T4 1.24, TSH 3rd Generation 0.34 L 02/03/17 13:00: Alcohol, Quantitative < 10 02/03/17 13:00: Salicylates < 1 L, Acetaminophen < 10.0 L 02/03/17 13:00: Urine Opiates Screen Positive H, Urine Methadone Screen Negative , Ur Barbiturates Screen Negative, Ur Phencyclidine Scrn Negative, Ur Amphetamines Screen Negative, U Benzodiazepines Scrn Positive, U Oth Cocaine Metabols Positive H, U Cannabinoids Screen Negative 02/03/17 13:00: Sodium 141, Potassium 3.9, Chloride 100, Carbon Dioxide 30, Anion Gap 16, BUN 18, Creatinine 0.9, Est GFR ( Amer) > 60, Est GFR (Non- Af Amer) > 60, Random Glucose 120 H, Calcium 9.5, Total Bilirubin 0.4, AST 51, ALT 45, Alkaline Phosphatase 87, Total Protein 8.9 H, Albumin 4.1, Globulin 4.8 , Albumin/Globulin Ratio 0.9 L 02/03/17 13:00: Urine Color Yellow, Urine Appearance Clear, Urine pH 6.0, Ur Specific [place] 1.025, Urine Protein Trace H, Urine Glucose (UA) Negative, Urine Ketones Trace H, Urine Blood Negative, Urine Nitrate Negative, Urine Bilirubin Negative, Urine Urobilinogen 0.2, Ur Leukocyte Esterase Negative, Urine RBC Negative, Urine WBC Negative, Ur Epithelial Cells 0 - 2 02/03/17 13:00: WBC 4.2 L D, RBC 4.38, Hgb 13.4 L, Hct 40.6 L, MCV 92.7 D, MCH 30.6, MCHC 33.0, RDW 13.0, Plt Count 249, MPV 9.4, Gran % 59.0, Lymph % (Auto) 25.4, [place] % (Auto) 12.2 H, Eos % (Auto) 2.9, Baso % (Auto) 0.5, Gran # 2.47, Lymph # 1.1 L, [place] # 0.5, Eos # 0.1, Baso # 0.02 Vital Signs Temp Pulse Pulse Resp BP Pulse Ox 02/05/17 07:13 98.1 F 72 20 91/58 L 02/04/17 15:00 87 126/69 02/04/17 07:09 97.6 F 67 20 111/76 02/03/17 16:17 78 18 02/03/17 12:48 98.2 F 108 H 19 145/96 H 98 Consultations:: List each consultation separately and include: 1. Reason for request. 2. Findings. 3. Follow-up Consultations: medical consult was called, appreciated Summary of Hospital Course include:: 1. Description of specific treatment plan utilized for patients during their course of treatmen. 2. Summarize the time- course for resolution of acute symptoms and/or regressed behaviors. 3. Describe issues identified and worked on during hospitalization. 4. Describe medication utilized. 5. Describe medical problems identified and treated. 6. Reassessment of suicide risk Summary of Hospital Course: 41 y/o male, single, lives with girlfriend, unemployed and supporting his habit by asking for money from friends and family, with a psychiatric history of depression and medical h/o HIV. most recent admission to the Detox unit at [facility] in June 2016, h/o polysubstance abuse and dependence, IV heroin and conaine, benzodiazepines, pt also has h/o multiple incarcerations which mostly related to the drug possession and use, came to the hospital looking for help for his depressive symptoms and possible suicidal ideation. 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 this admission was almost the same case scenario, pt came to the hospital due to depressive symptoms related to his recent relapse on drugs. during this hospitalization pt was compliant with meds and treatment plan. pt requested to be discharged because "I feel much better, I want to be discharged because I want to spent [place] with my girlfriend". pt denied thoughts of harming self or others, denied v/a/t hallucinations. pt's girlfriend Diana Hughes [phone] visited pt, meeting took place today in the unit. As per girlfriend, pt was "very anxious and not well when I brought him to the hospital", Diana said that now "Sarbjit looks much better, he looks normal". pt requested to be discharged, pt does not meet a criteria for [facility] screening, pt will be d/c AMA. as per staff pt is mildly irritable, which could be related to the cravings to the drugs, but no behavioral incidents, pt has good appetite and sleep at the same time pt was not participating in unit activities, no psychosis. pt was seen by medical team for his HIV status. all meds continued. 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 overall pt improved, might benefit from longer hospitalization, but requested to be d/c, pt does not meet criteria for [facility] screening process, will be d/c AMA. At the time of the discharge pt denied been depressed, denied thoughts of harming self or others, denied psychotic symptoms, and pt does not appeared to be psychotic, denied been anxious, pt is not in imminent danger to self or others, will be following up at [facility] and AA/NA meetings of his choice, pt has capacity to call and schedule appts, pt knows about AA meetings in the area,it is patient responsibility to follow up with outpatient clinic, PMD as well as specialists. In case pt will need to obtain results of studies pending at discharge pt was provided with contact information of Psychiatric Inpatient unit [phone] as well as Medical Record Department [phone]. pt d/c AMA, no prescriptions provided pt was given back all of HIV meds Pt was educated about safety plan in case of worsening of symptoms or in case of suicidal or homicidal ideation call 911 or go to the nearest ER, also was educated to take meds as prescribed and stay away from drugs, pt verbalized understanding. - Diagnosis (1) Substance induced mood disorder Current Visit: Yes Status: Suspected Priority: Medium (2) Polysubstance abuse Current Visit: Yes Status: Chronic Priority: High - Final Diagnosis (DSM 5) Condition upon Discharge: STABLE Disposition: AGAINST MEDICAL ADVICE Follow-up Treatment Plan: At the time of the discharge pt denied been depressed, denied thoughts of harming self or others, denied psychotic symptoms, and pt does not appeared to be psychotic, denied been anxious, pt is not in imminent danger to self or others, will be following up at [facility] and AA/NA meetings of his choice, pt has capacity to call and schedule appts, pt knows about AA meetings in the area,it is patient responsibility to follow up with outpatient clinic, PMD as well as specialists. In case pt will need to obtain results of studies pending at discharge pt was provided with contact information of Psychiatric Inpatient unit [phone] as well as Medical Record Department [phone]. pt d/c AMA, no prescriptions provided pt was given back all of HIV meds Pt was educated about safety plan in case of worsening of symptoms or in case of suicidal or homicidal ideation call 911 or go to the nearest ER, also was educated to take meds as prescribed and stay away from drugs, pt verbalized understanding. - Smoking Cessation Smoking Cessation Medication prescribed: No Reason for not providing: pt was d/c AMA - Antipsychotic Medications Pt discharged on 2 or more routine antipsychotic medications: No
== END 2017-02-06 16:09 | disposition left against medical advice (07) | DRG 715 ==
LOC: ED 12:16 → ERH 14:37 → PSYC 15:31
PROVIDERS: ADMIT Psychiatry & Neurology Psychiatry; ATTEND Psychiatry & Neurology Psychiatry
DX: F11.24 Opioid dependence with opioid-induced mood disorder (principal); F14.24 Cocaine dependence with cocaine-induced mood disorder; F32.9 Major depressive disorder, single episode, unspecified; Z21 Asymptomatic human immunodeficiency virus [HIV] infection status; R45.851 Suicidal ideations; F41.9 Anxiety disorder, unspecified; F17.210 Nicotine dependence, cigarettes, uncomplicated

== ENCOUNTER 2017-06-30 18:50 | Emergency (ER) | payer MEDICAID, MEDICARE, OTHER ==
[2017-06-30 19:38] VITALS: BMI 21.9
[2017-06-30] MEDS ORDERED: Sodium Chloride 0.9% 1,000 ML IV STA (19:54)
[2017-06-30] MEDS ORDERED: cefTRIAXone 1 gm 1 GM/100 ML BAG IVPB STA (19:54)
--- NOTE | 2017-06-30 20:05 | ED PDOC ---
Arrival/HPI - General Chief Complaint: Male Genitourinary Time Seen by Provider: 06/30/17 19:10 Historian: Patient - History of Present Illness Narrative History of Present Illness (Text): 06/30/17 20:02 A 42 year old male, whose past medical history includes renal stones, s/p stents (20 yrs ago), presents to the emergency department complaining of fever, b/l flank pain, dysuria, and penile discharge. Denies abdominal pain, chest pain or shortness of breath. Denies scrotal swelling or pain. Denies diarrhea or constipation. Denies vomiting. Denies DM hx. Past Medical History - Provider Review Nursing Documentation Reviewed: Yes - Infectious Disease Hx of Infectious Diseases: None - Tetanus Immunization Tetanus Immunization: Unknown - Past Medical History Past Medical History: No Previous - Cardiac Hx Hypertension: No (Patient denied) - Pulmonary Hx Tuberculosis: No (Patient denied) - Neurological Hx Seizures: No (Patient denied) - HEENT Hx HEENT Disorder: No - Renal Hx Kidney Stones: Yes - Endocrine/Metabolic Hx Endocrine Disorders: No - Hematological/Oncological Hx Cancer: No (Patient denied) - Integumentary Hx Dermatological Disorder: No - Musculoskeletal/Rheumatological Hx Falls: No - Gastrointestinal Hx Gastrointestinal Disorders: No - Genitourinary/Gynecological Hx Sexually Transmitted Diseases: No (Patient denied) - Psychiatric Hx Anxiety: Yes Hx Depression: Yes Hx Substance Use: Yes (IVDU) - Past Surgical History Past Surgical History: No Previous - Surgical History Hx Orthopedic Surgery: Yes Other/Comment: Compound FX of the R arm-2 years ago-Surgery in [facility] [place]. stent for kidney stone - Anesthesia Hx Anesthesia: Yes Hx Anesthesia Reactions: No Hx Malignant Hyperthermia: No - Suicidal Assessment Feels Threatened In Home Enviroment: No Family/Social History - Physician Review Nursing Documentation Reviewed: Yes Family/Social History: No Known Family HX Smoking Status: Heavy Smoker > 10 Cigarettes Daily Hx Alcohol Use: No Hx Substance Use: Yes (IVDU) Substance used: heroin Hx Substance Use Treatment: No Allergies/Home Meds Allergies/Adverse Reactions: Allergies No Known Allergies Allergy (Verified 06/30/17 19:38) Review of Systems - Review of Systems Constitutional: Fevers ENT: absent: Sore Throat Respiratory: absent: SOB, Cough, Sputum, Wheezing Cardiovascular: absent: Chest Pain, Palpitations, Edema, Calf Pain, BARRY, Orthopnea, Syncope Gastrointestinal: absent: Abdominal Pain, Constipation, Diarrhea, Nausea, Vomiting Genitourinary Male: Dysuria, Other (penile discharge). absent: Frequency Musculoskeletal: Other (b/l flank pain) Skin: absent: Rash Neurological: absent: Headache Psychiatric: absent: Anxiety, Depression Physical Exam Vital Signs Temp Pulse Resp BP Pulse Ox 06/30/17 19:42 101.2 F H 101 H 20 117/76 96 Temperature: Afebrile Blood Pressure: Normal Pulse: Regular Respiratory Rate: Normal Appearance: Positive for: Well-Appearing, Non-Toxic, Comfortable Pain Distress: None Mental Status: Positive for: Alert and Oriented X 3 - Systems Exam Head: Present: Atraumatic, Normocephalic Pupils: Present: PERRL Extroacular Muscles: Present: EOMI Conjunctiva: Present: Normal Mouth: Present: Moist Mucous Membranes Respiratory/Chest: Present: Clear to Auscultation, Good Air Exchange. No: Respiratory Distress, Accessory Muscle Use Cardiovascular: Present: Regular Rate and Rhythm, Normal S1, S2. No: Murmurs Abdomen: No: Tenderness, Distention, Peritoneal Signs Genitourinary Male: Present: Penile Discharge (white color). No: Circumcised Penis (noncircumcised), Lesions, Testicle Tenderness, Testicle Swelling, Other ( no scrotal tenderness) Back: Present: Normal Inspection. No: CVA Tenderness Upper Extremity: Present: Normal Inspection Lower Extremity: Present: Normal Inspection. No: CALF TENDERNESS Neurological: Present: GCS=15, CN II-XII Intact, Speech Normal Skin: Present: Warm, Dry. No: Rashes (no rash to b/l hands. 2cm burn below L nipple with blister. No surrounding erythema), Normal Color Psychiatric: Present: Alert, Oriented x 3, Normal Insight, Normal Concentration Medical Decision Making ED Course and Treatment: 06/30/17 20:04 Impression: 42 year old male with fever, penile discharge, b/l flank pain, and dysuria. Plan: -- Abd/pelvis CT -- Labs -- Blood Culture -- Urine Culture -- Venous Blood Gas -- Tylenol -- Zithomax -- Rocephin -- IV Fluids -- Urinalysis -- Reassess and disposition Progress Notes: 06/30/17 22:19 CT shows IMPRESSION: No obstructing renal or ureteral stones or hydronephrosis; mild bladder wall thickening, underdistention versus inflammation Additional nonemergent findings as described above. 06/30/17 22:25 Patient has Normal wbc, lactate and renal function. Patient reports improvement of symptoms. He is tolerating po. He was treated for gonorrhea and chlamydia. Ucx sent. CT as above. UA positive for leukocytes and 5-10 wbc. He reports that he wants to go home and will take antibiotics and return with any worsening symptoms. - Lab Interpretations Lab Results: 06/30/17 20:00 06/30/17 20:00 Lab Results 06/30/17 20:50: Urine Color Roxy, Urine Appearance Cloudy, Urine pH 6.5, Ur Specific [place] 1.020, Urine Protein 100 H, Urine Glucose (UA) Negative, Urine Ketones Trace H, Urine Blood Moderate H, Urine Nitrate Negative, Urine Bilirubin Moderate H, Urine Urobilinogen >=8.0, Ur Leukocyte Esterase Large H, Urine RBC 25 - 30, Urine WBC 5 - 10, Ur Epithelial Cells Many, Amorphous Sediment Moderate 06/30/17 20:00: pO2 71 H, VBG pH 7.43, VBG pCO2 51.0, VBG HCO3 33.9 H, VBG Total CO2 35.5 H, VBG O2 Sat (Calc) 96.1 H, VBG Base Excess 8.0 H, VBG Potassium 3.4 L, Sodium 135.0, Chloride 98.0, Glucose 87, Lactate 1.6, FiO2 21.0 , Venous Blood Potassium 3.4 L 06/30/17 20:00: Sodium 140, Chloride 97 L, Potassium 3.5 L, Carbon Dioxide 30, Anion Gap 16, BUN 13, Creatinine 0.9, Est GFR ( Amer) > 60, Est GFR (Non- Af Amer) > 60, Random Glucose 92, Calcium 8.7, Total Bilirubin 0.9, AST 57, ALT 25, Alkaline Phosphatase 76, Total Protein 9.1 H, Albumin 4.1, Globulin 5.0, Albumin/Globulin Ratio 0.8 L 06/30/17 20:00: WBC 7.4 D, RBC 4.26, Hgb 11.8 L, Hct 35.1 L, MCV 82.4 D, MCH 27.7, MCHC 33.6, RDW 14.8 H, Plt Count 263, MPV 9.8, Gran % 81.0 H, Lymph % ( Auto) 11.3 L, [place] % (Auto) 7.5 H, Eos % (Auto) 0.1 L, Baso % (Auto) 0.1, Gran # 6.00, Lymph # (Auto) 0.8 L, [place] # (Auto) 0.6, Eos # (Auto) 0.0, Baso # (Auto ) 0.01 - RAD Interpretation Radiology Orders: 06/30/17 19:41 ABD & PELVIS W/O PO OR IV CONT [CT] Stat - Medication Orders Current Medication Orders: Discontinued Medications Acetaminophen (Tylenol 325mg Tab) 650 mg PO STAT STA Stop: 06/30/17 20:00 Last Admin: 06/30/17 20:36 Dose: 650 mg MAR Pain/Vitals Document 06/30/17 20:36 AD (Rec: 06/30/17 20:36 AD [id number]) Pain Reassessment Is This A Pain ReAssessment? No Presence of Pain Presence of Pain Yes Azithromycin (Zithromax) 1,000 mg PO STAT STA PRN Reason: Protocol Stop: 06/30/17 19:59 Last Admin: 06/30/17 20:49 Dose: 1,000 mg Ceftriaxone Sodium (Rocephin 1 Gram Ivpb) 1 gm in 100 mls @ 100 mls/hr IVPB STAT STA PRN Reason: Protocol Stop: 06/30/17 20:53 Last Admin: 06/30/17 20:35 Dose: 100 mls/hr eMAR Start Stop Document 06/30/17 20:35 AD (Rec: 06/30/17 20:35 AD [id number]) Intravenous Solution Start Date 06/30/17 Start Time 20:35 Sodium Chloride (Sodium Chloride 0.9%) 1,000 mls @ 999 mls/hr IV .Q1H1M STA Stop: 06/30/17 20:54 Last Admin: 06/30/17 20:35 Dose: 999 mls/hr eMAR Start Stop Document 06/30/17 20:35 AD (Rec: 06/30/17 20:35 AD [id number]) Intravenous Solution Start Date 06/30/17 Start Time 20:35 - Scribe Statement The provider has reviewed the documentation as recorded by the Abdoulaye Owens Provider Scribe Attestation: All medical record entries made by the Scribe were at my direction and personally dictated by me. I have reviewed the chart and agree that the record accurately reflects my personal performance of the history, physical exam, medical decision making, and the department course for this patient. I have also personally directed, reviewed, and agree with the discharge instructions and disposition. Disposition/Present on Arrival - Present on Arrival Any Indicators Present on Arrival: No History of DVT/PE: No History of Uncontrolled Diabetes: No Urinary Catheter: No History of Decub. Ulcer: No History Surgical Site Infection Following: None - Disposition Have Diagnosis and Disposition been Completed?: Yes Diagnosis: UTI (urinary tract infection), STD (male) Disposition: HOME/ ROUTINE Disposition Time: 22:27 Patient Plan: Discharge Patient Problems: Current Active Problems Problem Status Onset UTI (urinary tract infection) Acute STD (male) Acute Condition: GOOD Discharge Instructions (ExitCare): Urinary Tract Infections in Adults, Urethritis Additional Instructions: Take full course of antibiotics. Return to ED if condition worsens. Follow-up with PMD within 2 days. Prescriptions: Cephalexin [Keflex] 500 mg PO TID #30 capsule Referrals: Pam Hopper MD [Staff Provider] - Follow up with primary Scotty Allred MD [Staff Provider] - Follow up with primary Forms: Txt4 (Omani)
[2017-06-30 20:45] LABS: VENOUS BLOOD GAS PO2 71 mm/Hg (30-55); VENOUS BLOOD PH 7.43 (7.32-7.43)
[2017-06-30 20:49] LABS: BASO # 0.01 K/mm3 (0.0-2.0); BASO % 0.1 % (0.0-3.0); EOS % 0.1 % (1.5-5.0); HEMOGLOBIN 11.8 g/dL (14.0-18.0); LYMPH # 0.8 (1.2-3.4); LYMPH % 11.3 % (22.0-35.0); MEAN CELL VOLUME 82.4 fl (80.0-105.0); MEAN CORPUSCULAR HEMOGLOBIN 27.7 pg (25.0-35.0); MEAN CORPUSCULAR HGB CONC 33.6 g/dl (31.0-37.0); MEAN PLATELET VOLUME 9.8 fl (7.0-11.0); MONO # 0.6 (0.1-0.6); MONO % 7.5 % (1.0-6.0); RBC 4.26 10^6/uL (3.5-6.1); RED CELL DISTRIBUTION WIDTH 14.8 % (11.5-14.5); WHITE BLOOD COUNT 7.4 10^3/ul (4.5-11.0)
[2017-06-30 20:50] LABS: ALB/GLOB RATIO 0.8 (1.1-1.8); ALBUMIN 4.1 g/dL (3.0-4.8); ALT/SGPT 25 U/L (7-56); AST/SGOT 57 U/L (17-59); BLOOD UREA NITROGEN 13 mg/dL (7-21); CALCIUM 8.7 mg/dL (8.4-10.5); GFR AFRICAN-AMERICAN > 60; GFR NON-AFRICAN AMERICAN > 60
[2017-06-30 20:57] LABS: PH,URINE 6.5 (4.7-8.0); URINE BILIRUBIN MODERATE (NEGATIVE); URINE BLOOD MODERATE (NEGATIVE); URINE GLUCOSE (UA) NEGATIVE (NEGATIVE); URINE LEUKOCYTE ESTERASE LARGE Leu/uL (NEGATIVE); URINE PROTEIN 100 mg/dL (<30 mg/dL); URINE UROBILINOGEN >=8.0 E.U./dL (<1 E.U./dL)
[2017-06-30 20:59] LABS: URINE APPEARANCE CLOUDY (CLEAR); URINE COLOR AMBER (YELLOW)
[2017-06-30 21:17] LABS: URINE AMORPHOUS SEDIMENT MODERATE; URINE EPITHELIAL CELLS MANY /hpf (0-5); URINE RBC 25 - 30 /hpf (0-2)
--- NOTE | 2017-06-30 22:16 | CT ---
EXAM: CT Abdomen and Pelvis Without Intravenous Contrast EXAM DATE/TIME: 06/30/2017 7:41 PM CLINICAL HISTORY: 42 years old, male; Signs and symptoms; Other: Dysuria, flank pain, HX of renal stones; Prior surgery; Surgery type: Renal stent; Additional info: Dysuria, flank pain, HX of renal stones, TECHNIQUE: Axial computed tomography images of the abdomen and pelvis without intravenous contrast. All CT scans at this facility use one or more dose reduction techniques, viz.: automated exposure control; ma/kV adjustment per patient size (including targeted exams where dose is matched to indication; i.e. head); or iterative reconstruction technique. Coronal and sagittal reformatted images were created and reviewed. COMPARISON: There are no prior studies for comparison. FINDINGS: Lower thorax: Heart size is normal. There is a small hiatal hernia. Lung bases are clear ABDOMEN: Liver: unremarkable Gallbladder and bile ducts: unremarkable Pancreas: unremarkable Spleen: Spleen is unremarkable. There is an accessory spleen in the left upper quadrant. Adrenals: unremarkable Kidneys and ureters: There are no renal or ureteral stones. There is no pelvocaliectasis or ureterectasis. Stomach and bowel: Stomach is almost completely empty. Rotation is normal. There is fluid and air throughout the small bowel. Ileocecal region is unremarkable. Appendix and terminal ileum are unremarkable. Colon is incompletely distended which limits evaluation. PELVIS: Appendix: See stomach and bowel Bladder: Bladder is almost empty. There is mild bladder wall prominence. Reproductive: Seminal vesicles and prostate are unremarkable. ABDOMEN and PELVIS: Intraperitoneal space: There is no free air or free fluid. Bones/joints: There are no acute osseous abnormalities. Soft tissues: unremarkable Vasculature: Vascular structures are unremarkable. There are multiple phleboliths. Lymph nodes: There are shotty inguinal nodes. There are shotty periaortic nodes. IMPRESSION: No obstructing renal or ureteral stones or hydronephrosis; mild bladder wall thickening, underdistention versus inflammation Additional nonemergent findings as described above.
[2017-06-30 22:41] VITALS: BP 110/60; PULSE 89; RESP 18; TEMP 98.4
[2017-07-01 00:38] VITALS: O2SAT 100
== END 2017-06-30 22:40 | disposition home or self-care (01) ==
LOC: ED 18:50
DX: N39.0 Urinary tract infection, site not specified (principal); A64 Unspecified sexually transmitted disease
CPT/HCPCS: 74176; 80053; 81001; 82803; 85025; 86592; 87040; 87086; 87491; 87591; 99284; J0696; J7040